=== PATIENT | male | born 1950 | race Caucasian/White ===

== ENCOUNTER 2022-12-15 17:37 | Inpatient (IN) | payer MEDICARE ==
[2022-12-15] VITALS (15 sets, daily range): BP systolic 103–151; BP diastolic 63–87
[~2022-12-15] VITALS: Ht 175.3 cm; Wt 64.5 kg
[~2022-12-15 17:37] MED LIST: LEVOTHYROXIN50 MCG PO; LISINOPRIL10 MG PO; ROSUVASTATIN CAL5 MG PEG
[2022-12-15 18:34] LABS: BASO% 0.4 % (0-3); IMMATURE GRANULOCYTES 0.1 % (0.0-5.0); LYMPH% 7.6 % (15-41); MEAN CORPUSCULAR HGB 33.7 pG CALC (26.0-32.0); MEAN CORPUSCULAR HGB CONC 30.9 g/dL CAL (32.0-36.0); NEUT# 6.25 thou/uL (1.82-7.42); NEUT% 78.9 % (42-76); RED BLOOD COUNT 2.94 mill/uL (4.70-6.10); RED CELL DISTRI WIDTH 16.2 % (11.5-15.5)
[2022-12-15 18:37] LABS: HEMOGLOBIN 9.9 g/dl (14.0-18.0); MEAN CELL VOLUME 108.8 fL CALC (80.0-100.0)
[2022-12-15 18:52] LABS: ALBUMIN 4.2 g/dL (3.2-5.0); ALKALINE PHOSPHATASE 105 u/l (38-126); ANION GAP 11 (6-22 (CALC)); BILIRUBIN, TOTAL 0.2 mg/dL (0.2-1.3); BUN 37 mg/dL (8-23); BUN/CREATININE RATIO 39 (12-20 (CALC)); CARBON DIOXIDE 35 mmol/l (22-30); CHLORIDE 93 mmol/l (95-108); GFR FOR AFR.AMER. > 60 ML/MIN (>=60 (CALC)); GFR OTHER RACES > 60 ML/MIN (>=60 (CALC)); LIPASE 59 u/l (23-300); POTASSIUM 4.6 mmol/l (3.5-5.1); SGOT/AST 33 u/l (19-48); SODIUM 134 mmol/l (137-146); TOTAL PROTEIN 7.7 g/dL (6.3-8.2)
[2022-12-15] MEDS ORDERED: LASIX 40 M40 MG/4 ML IJ (20:32)
[2022-12-16] VITALS (8 sets, daily range): BP systolic 89–107; BP diastolic 42–49
[2022-12-16 06:30] LABS: BASO% 0.3 % (0-3); EOS% 2.1 % (0-8); IMMATURE GRANULOCYTES 0.2 % (0.0-5.0); LYMPH% 8.5 % (15-41); MEAN CORPUSCULAR HGB 33.9 pG CALC (26.0-32.0); MEAN CORPUSCULAR HGB CONC 31.1 g/dL CAL (32.0-36.0); MONO% 8.5 % (2-13); NEUT# 4.99 thou/uL (1.82-7.42); NEUT% 80.4 % (42-76); RED BLOOD COUNT 2.33 mill/uL (4.70-6.10)
[2022-12-16 06:30] LABS: URINE BILIRUBIN - DIPSTICK NEGATIVE (NEGATIVE); URINE BLOOD DIPSTICK NEGATIVE (NEGATIVE); URINE COLOR YELLOW; URINE GLUCOSE - DIPSTICK NEGATIVE (NEGATIVE); URINE KETONE NEGATIVE (NEGATIVE); URINE LEUK ESTERASE NEGATIVE (NEGATIVE); URINE PROTEIN - DIPSTICK NEGATIVE (NEG-TRACE); URINE SPECIFIC GRAVITY 1.015
[2022-12-16 06:33] LABS: URINE NITRITE - DIPSTICK NEGATIVE (Negative)
[2022-12-16 06:37] LABS: HEMATOCRIT 25.4 % (39.0-50.0); HEMOGLOBIN 7.9 g/dl (14.0-18.0)
[2022-12-16 07:13] LABS: ALKALINE PHOSPHATASE 63 u/l (38-126); ANION GAP 7 (6-22 (CALC)); BUN 27 mg/dL (8-23); BUN/CREATININE RATIO 34 (12-20 (CALC)); CARBON DIOXIDE 33 mmol/l (22-30); CHLORIDE 97 mmol/l (95-108); CREATININE 0.8 mg/dL (0.7-1.3); GFR FOR AFR.AMER. > 60 ML/MIN (>=60 (CALC)); GFR OTHER RACES > 60 ML/MIN (>=60 (CALC)); POTASSIUM 4.2 mmol/l (3.5-5.1); SGOT/AST 24 u/l (19-48); SODIUM 133 mmol/l (137-146)
[2022-12-16 07:17] LABS: ALBUMIN 2.8 g/dL (3.2-5.0); BILIRUBIN, TOTAL 0.1 mg/dL (0.2-1.3); TOTAL PROTEIN 5.5 g/dL (6.3-8.2)
[2022-12-16 13:09] LABS: HEMATOCRIT 25.9 % (39.0-50.0)
[2022-12-16 18:31] LABS: HEMATOCRIT 27.6 % (39.0-50.0); HEMOGLOBIN 8.5 g/dl (14.0-18.0)
[2022-12-17 00:35] LABS: HEMATOCRIT 23.5 % (39.0-50.0); HEMOGLOBIN 7.2 g/dl (14.0-18.0)
[2022-12-17 05:15] VITALS: BP 105/58
[2022-12-17 05:50] VITALS: BP 123/61
[2022-12-17 06:45] LABS: HEMATOCRIT 26.2 % (39.0-50.0); HEMOGLOBIN 8.1 g/dl (14.0-18.0); MEAN CELL VOLUME 109.6 fL CALC (80.0-100.0); MEAN CORPUSCULAR HGB 33.9 pG CALC (26.0-32.0); MEAN CORPUSCULAR HGB CONC 30.9 g/dL CAL (32.0-36.0); RED BLOOD COUNT 2.39 mill/uL (4.70-6.10); RED CELL DISTRI WIDTH 15.7 % (11.5-15.5)
[2022-12-17 07:02] LABS: ALBUMIN 2.7 g/dL (3.2-5.0); ALKALINE PHOSPHATASE 70 u/l (38-126); ANION GAP 7 (6-22 (CALC)); BILIRUBIN, TOTAL 0.1 mg/dL (0.2-1.3); BUN 18 mg/dL (8-23); BUN/CREATININE RATIO 22 (12-20 (CALC)); CARBON DIOXIDE 31 mmol/l (22-30); CHLORIDE 100 mmol/l (95-108); CREATININE 0.8 mg/dL (0.7-1.3); GFR FOR AFR.AMER. > 60 ML/MIN (>=60 (CALC)); GFR OTHER RACES > 60 ML/MIN (>=60 (CALC)); SGOT/AST 24 u/l (19-48); SODIUM 133 mmol/l (137-146); TOTAL PROTEIN 5.2 g/dL (6.3-8.2)
[2022-12-17 09:52] VITALS: BP 113/51
[2022-12-17 12:34] LABS: HEMATOCRIT 25.9 % (39.0-50.0); HEMOGLOBIN 7.9 g/dl (14.0-18.0)
[2022-12-17 14:33] VITALS: BP 117/63
[2022-12-17 18:06] LABS: HEMATOCRIT 27.8 % (39.0-50.0); HEMOGLOBIN 8.5 g/dl (14.0-18.0)
[2022-12-17 18:38] VITALS: BP 94/51
[2022-12-17 19:00] VITALS: BP 94/51
[2022-12-18 00:54] LABS: HEMATOCRIT 26.5 % (39.0-50.0); HEMOGLOBIN 8.1 g/dl (14.0-18.0)
[2022-12-18 03:18] VITALS: BP 106/61
[2022-12-18 04:00] VITALS: BP 106/61
[2022-12-18 06:05] VITALS: BP 110/58
[2022-12-18 06:29] LABS: ALBUMIN 2.6 g/dL (3.2-5.0); ALKALINE PHOSPHATASE 67 u/l (38-126); ANION GAP 5 (6-22 (CALC)); BUN 15 mg/dL (8-23); BUN/CREATININE RATIO 22 (12-20 (CALC)); CARBON DIOXIDE 30 mmol/l (22-30); CHLORIDE 100 mmol/l (95-108); CREATININE 0.7 mg/dL (0.7-1.3); GFR FOR AFR.AMER. > 60 ML/MIN (>=60 (CALC)); GFR OTHER RACES > 60 ML/MIN (>=60 (CALC)); POTASSIUM 4.5 mmol/l (3.5-5.1); SGOT/AST 31 u/l (19-48); SODIUM 131 mmol/l (137-146); TOTAL PROTEIN 5.1 g/dL (6.3-8.2)
[2022-12-18 06:34] LABS: BILIRUBIN, TOTAL 0.2 mg/dL (0.2-1.3)
[2022-12-18 06:37] LABS: BASO% 0.6 % (0-3); EOS% 5.6 % (0-8); HEMATOCRIT 25.7 % (39.0-50.0); IMMATURE GRANULOCYTES 0.4 % (0.0-5.0); LYMPH% 7.9 % (15-41); MEAN CORPUSCULAR HGB 33.6 pG CALC (26.0-32.0); MEAN CORPUSCULAR HGB CONC 31.1 g/dL CAL (32.0-36.0); MONO% 11.5 % (2-13); NEUT# 3.86 thou/uL (1.82-7.42); RED BLOOD COUNT 2.38 mill/uL (4.70-6.10); RED CELL DISTRI WIDTH 15.6 % (11.5-15.5)
[2022-12-18 07:05] VITALS: BP 110/58
[2022-12-18 11:35] LABS: HEMATOCRIT 26.7 % (39.0-50.0); HEMOGLOBIN 8.3 g/dl (14.0-18.0)
[2022-12-18 15:13] VITALS: BP 146/68
[2022-12-18 18:43] VITALS: BP 128/60
[2022-12-19 00:50] LABS: HEMATOCRIT 23.8 % (39.0-50.0); HEMOGLOBIN 7.5 g/dl (14.0-18.0)
[2022-12-19 03:47] VITALS: BP 120/57
[2022-12-19 06:23] LABS: HEMATOCRIT 24.2 % (39.0-50.0); HEMOGLOBIN 7.5 g/dl (14.0-18.0)
[2022-12-19 06:25] VITALS: BP 138/68
[2022-12-19 17:51] VITALS: BP 116/69
[2022-12-20 03:17] VITALS: BP 140/87
[2022-12-20 05:38] VITALS: BP 141/74
[2022-12-20 05:44] LABS: HEMATOCRIT 28.6 % (39.0-50.0); HEMOGLOBIN 8.7 g/dl (14.0-18.0); MEAN CELL VOLUME 108.3 fL CALC (80.0-100.0); MEAN CORPUSCULAR HGB CONC 30.4 g/dL CAL (32.0-36.0); RED BLOOD COUNT 2.64 mill/uL (4.70-6.10); RED CELL DISTRI WIDTH 15.5 % (11.5-15.5)
[2022-12-20 05:58] LABS: ALKALINE PHOSPHATASE 86 u/l (38-126); ANION GAP 10 (6-22 (CALC)); BUN 12 mg/dL (8-23); BUN/CREATININE RATIO 14 (12-20 (CALC)); CARBON DIOXIDE 31 mmol/l (22-30); CHLORIDE 98 mmol/l (95-108); CREATININE 0.8 mg/dL (0.7-1.3); GFR FOR AFR.AMER. > 60 ML/MIN (>=60 (CALC)); GFR OTHER RACES > 60 ML/MIN (>=60 (CALC)); MAGNESIUM 2.1 mg/dL (1.6-2.3); POTASSIUM 4.6 mmol/l (3.5-5.1); SGOT/AST 30 u/l (19-48); SODIUM 134 mmol/l (137-146)
[2022-12-20 06:06] LABS: ALBUMIN 3.2 g/dL (3.2-5.0); BILIRUBIN, TOTAL 0.3 mg/dL (0.2-1.3); TOTAL PROTEIN 6.2 g/dL (6.3-8.2)
[2022-12-20 08:27] VITALS: BP 141/740
[2022-12-20] MEDS ORDERED: LASIX 10 MG10 MG/ML VT (11:20)
[2022-12-20] MEDS ORDERED: LEVAQUIN750 M1 VT (11:22)
== END 2022-12-20 13:18 | disposition home health service (06) | DRG 178 ==
LOC: ED 17:37 → ED-I 20:01 → ED 20:09 → MS2 20:10
PROVIDERS: Nurse Practitioner; ADMIT Internal Medicine; ATTEND Internal Medicine
DX: J15.1 Pneumonia due to Pseudomonas (principal); D62 Acute posthemorrhagic anemia; N17.9 Acute kidney failure, unspecified; E46 Unspecified protein-calorie malnutrition; K62.5 Hemorrhage of anus and rectum; E86.0 Dehydration; C14.0 Malignant neoplasm of pharynx, unspecified; L89.312 Pressure ulcer of right buttock, stage 2; D63.8 Anemia in other chronic diseases classified elsewhere; E88.09 Other disorders of plasma-protein metabolism, not elsewhere classified; T85.848A Pain due to other internal prosthetic devices, implants and grafts, initial encounter; I10 Essential (primary) hypertension; E05.90 Thyrotoxicosis, unspecified without thyrotoxic crisis or storm; Y83.3 Surgical operation with formation of external stoma as the cause of abnormal reaction of the patient, or of later complication, without mention of misadventure at the time of the procedure; Z93.1 Gastrostomy status; Z93.0 Tracheostomy status; Z92.21 Personal history of antineoplastic chemotherapy; Z92.3 Personal history of irradiation
CPT/HCPCS: S0164